=== PATIENT | female | born 1950 | race Caucasian/White ===

== ENCOUNTER 2021-02-25 18:17 | Inpatient (IN) ==
[2021-02-25] MEDS ORDERED: Naloxone 0.4 MG/ML INJ IVP PRN (19:55)
[2021-02-25] MEDS ORDERED: Dextrose Gel 15 GM/37.5 ML TUBE PO PRN ×2 (19:59)
[2021-02-25] MEDS ORDERED: D5% in Water 1,000 ML IVC PRN (19:59)
[2021-02-25] MEDS ORDERED: *HR* Dextrose 50 % in Water (Syg) 50 ML SYRINGE IVP PRN (19:59)
[2021-02-25] MEDS: Insulin LISPRO 300 UNITS/3 ML VIAL SUBQ SCH ×2 (21:01→23:41)
[2021-02-25] MEDS ORDERED: Perflutren Lipid Microsphere 1.3 ML in 0.9 % Sodium Chloride 8.7 ML IVP PRN (22:49)
[2021-02-25 23:31] LABS: Adenovirus Not Detected (Not Detect); Bordetella Pertussis Not Detected (Not Detect); Chlamydophila pneumoniae Not Detected (Not Detect); Coronavirus 229E Not Detected (Not Detect); Coronavirus HKU1 Not Detected (Not Detect); Coronavirus NL63 Not Detected (Not Detect); Coronavirus OC43 Not Detected (Not Detect); Human Metapneumovirus Not Detected (Not Detect); Human Rhinovirus/Enterovirus Not Detected (Not Detect); Influenza A Subtype 2009 H1 Not Detected (Not Detect); Influenza B Not Detected (Not Detect); Mycoplasma pneumoniae Not Detected (Not Detect); Parainfluenza Virus 1 Not Detected (Not Detect); Parainfluenza Virus 2 Not Detected (Not Detect); Parainfluenza Virus 3 Not Detected (Not Detect); Parainfluenza Virus 4 Not Detected (Not Detect); Respiratory Syncytial Virus Not Detected (Not Detect); SARS-CoV-2 Not Detected (Not Detect)
[2021-02-26 00:43] LABS: Basophils # 0.1 K/mcL (0.0-0.2); Basophils % 0.6 %; Eosinophils # 0.2 K/mcL (0.0-0.6); Eosinophils % 1.3 %; Hematocrit 36.7 % (35.3-44.9); Hemoglobin 11.8 g/dL (11.5-15.4); Immature Granulocytes % 0.5 % (0-4); Lymphocytes # 4.1 K/mcL (0.6-4.6); Lymphocytes % 30.5 %; Mean Corpuscular HGB Conc 32.2 g/dL (31.6-35.5); Mean Corpuscular Hemoglobin 27.7 pg (28.0-33.3); Mean Corpuscular Volume 86.2 fL (83.0-100.0); Mean Platelet Volume 11.4 fL (9.4-12.4); Monocytes % 7.4 %; Neutrophils # 8.1 K/mcL (1.6-8.9); Platelet Count 236 K/mcL (140-400); Red Blood Count 4.26 M/mcL (3.82-4.97); Red Cell Distribution Width 13.8 % (11.5-14.5); Segmented Neutrophils % 59.7 %; White Blood Count 13.6 K/mcL (4.3-11.1)
[2021-02-26 01:00] LABS: Calcium 9.3 mg/dL (8.6-10.3); Magnesium 1.6 mg/dL (1.6-2.6); Phosphorous 3.8 mg/dL (2.7-4.5); Potassium 3.9 mEq/L (3.5-5.1)
[2021-02-26] MEDS: Insulin LISPRO 300 UNITS/3 ML VIAL SUBQ SCH ×8 (06:12→21:56)
[2021-02-26] MEDS: *HR* Heparin 5,000 UNIT/ML VIAL SQ SCH ×3 (06:12→21:42)
[2021-02-26] MEDS: cefTRIAXone 1,000 MG in Water for inj. (sterile) 10 ML IVP SCH (08:50)
[2021-02-26] MEDS: lisinopriL 20 MG TABLET PO SCH (15:00)
[2021-02-26] MEDS ORDERED: 0.9 % Sodium Chloride 1,000 ML ONE (17:33)
[2021-02-26] MEDS ORDERED: *HR* FentaNYL (PF) 100 MCG/2 ML VIAL ONE (17:33)
[2021-02-26] MEDS ORDERED: ISOVUE-370 200 ML INFUS..BTL ONE (17:33)
[2021-02-26] MEDS ORDERED: Nitroglycerin 1,000 MCG/5 ML VIAL IV ONE (17:33)
[2021-02-26] MEDS ORDERED: Heparin 1,000 UNITS/500 mL 500 ML ONE (17:33)
[2021-02-26] MEDS ORDERED: *HR* Heparin 10,000 UNIT/10 ML VIAL ONE (17:33)
[2021-02-26] MEDS ORDERED: *HR* Midazolam HCl 2 MG/2 ML VIAL ONE (17:33)
[2021-02-26] MEDS: Insulin DETEMIR 100 UNIT/ML X5UNITS SUBQ SCH (21:49)
[2021-02-27 04:43] LABS: Basophils # 0.1 K/mcL (0.0-0.2); Basophils % 0.6 %; Eosinophils # 0.2 K/mcL (0.0-0.6); Eosinophils % 2.3 %; Hematocrit 33.1 % (35.3-44.9); Hemoglobin 10.6 g/dL (11.5-15.4); Immature Granulocytes % 0.3 % (0-4); Lymphocytes # 2.8 K/mcL (0.6-4.6); Mean Corpuscular Hemoglobin 27.5 pg (28.0-33.3); Mean Platelet Volume 11.3 fL (9.4-12.4); Monocytes # 0.8 K/mcL (0.0-1.3); Monocytes % 7.7 %; Neutrophils # 5.9 K/mcL (1.6-8.9); Platelet Count 185 K/mcL (140-400); Red Blood Count 3.85 M/mcL (3.82-4.97); Segmented Neutrophils % 60.1 %; White Blood Count 9.7 K/mcL (4.3-11.1)
[2021-02-27] MEDS: Insulin LISPRO 300 UNITS/3 ML VIAL SUBQ SCH ×6 (04:49→21:08)
[2021-02-27 04:59] LABS: Calcium 8.9 mg/dL (8.6-10.3); Potassium 4.1 mEq/L (3.5-5.1)
[2021-02-27] MEDS: *HR* Heparin 5,000 UNIT/ML VIAL SQ SCH ×3 (05:02→21:09)
[2021-02-27] MEDS: lisinopriL 20 MG TABLET PO SCH (08:07)
[2021-02-27] MEDS: Aspirin 81 MG TAB.CHEW PO SCH (08:07)
[2021-02-27] MEDS: cefTRIAXone 1,000 MG in Water for inj. (sterile) 10 ML IVP SCH (08:09)
[2021-02-27] MEDS ORDERED: *HR* Atropine Sulfate 1 MG/10 ML SYRINGE IVP PRN (11:45)
[2021-02-27] MEDS: *HR* Atropine Sulfate 1 MG/10 ML SYRINGE IVP PRN ×2 (11:59→18:48)
[2021-02-27 14:41] LABS: Thyroid Stimulating Hormone 3.324 mcIU/mL (0.340-5.600)
[2021-02-27 14:42] LABS: Triiodothyronine (T3) Free 2.75 pg/mL (2.50-3.90)
[2021-02-27] MEDS: Insulin DETEMIR 100 UNIT/ML X5UNITS SUBQ SCH (21:09)
[2021-02-28 01:35] LABS: Basophils # 0.1 K/mcL (0.0-0.2); Basophils % 0.5 %; Eosinophils # 0.3 K/mcL (0.0-0.6); Eosinophils % 2.7 %; Hematocrit 34.3 % (35.3-44.9); Hemoglobin 10.9 g/dL (11.5-15.4); Immature Granulocytes % 0.4 % (0-4); Lymphocytes # 3.3 K/mcL (0.6-4.6); Lymphocytes % 32.6 %; Mean Corpuscular HGB Conc 31.8 g/dL (31.6-35.5); Mean Corpuscular Hemoglobin 27.1 pg (28.0-33.3); Mean Corpuscular Volume 85.3 fL (83.0-100.0); Mean Platelet Volume 11.4 fL (9.4-12.4); Monocytes # 0.8 K/mcL (0.0-1.3); Monocytes % 7.9 %; Neutrophils # 5.7 K/mcL (1.6-8.9); Platelet Count 195 K/mcL (140-400); Red Blood Count 4.02 M/mcL (3.82-4.97); Red Cell Distribution Width 13.8 % (11.5-14.5); Segmented Neutrophils % 55.9 %; White Blood Count 10.3 K/mcL (4.3-11.1)
[2021-02-28] MEDS: *HR* Heparin 5,000 UNIT/ML VIAL SQ SCH ×3 (05:54→20:38)
[2021-02-28] MEDS: cefTRIAXone 1,000 MG in Water for inj. (sterile) 10 ML IVP SCH (07:35)
[2021-02-28] MEDS: Insulin LISPRO 300 UNITS/3 ML VIAL SUBQ SCH ×4 (07:36→20:37)
[2021-02-28] MEDS: Aspirin 81 MG TAB.CHEW PO SCH (07:36)
[2021-02-28] MEDS: lisinopriL 20 MG TABLET PO SCH (07:36)
[2021-02-28] MEDS: *HR* Atropine Sulfate 1 MG/10 ML SYRINGE IVP PRN (09:48)
[2021-02-28] MEDS: Insulin DETEMIR 100 UNIT/ML X5UNITS SUBQ SCH (20:37)
[2021-03-01] MEDS: *HR* Heparin 5,000 UNIT/ML VIAL SQ SCH ×3 (04:17→20:18)
[2021-03-01 06:35] LABS: Basophils # 0.1 K/mcL (0.0-0.2); Basophils % 0.5 %; Eosinophils # 0.2 K/mcL (0.0-0.6); Eosinophils % 2.2 %; Hemoglobin 10.6 g/dL (11.5-15.4); Immature Granulocytes % 0.3 % (0-4); Mean Corpuscular HGB Conc 32.1 g/dL (31.6-35.5); Mean Corpuscular Hemoglobin 27.8 pg (28.0-33.3); Mean Corpuscular Volume 86.6 fL (83.0-100.0); Mean Platelet Volume 11.6 fL (9.4-12.4); Monocytes # 0.9 K/mcL (0.0-1.3); Monocytes % 8.3 %; Neutrophils # 6.4 K/mcL (1.6-8.9); Platelet Count 192 K/mcL (140-400); Red Blood Count 3.81 M/mcL (3.82-4.97); Red Cell Distribution Width 13.9 % (11.5-14.5); Segmented Neutrophils % 60.7 %; White Blood Count 10.5 K/mcL (4.3-11.1)
[2021-03-01 06:43] LABS: INR 1.1; Prothrombin Time 12.6 Seconds (9.4-12.1)
[2021-03-01 06:46] LABS: Activated Partial Thrombo Time 32.5 Seconds (26.0-36.0)
[2021-03-01 06:52] LABS: Calcium 9.1 mg/dL (8.6-10.3); Potassium 4.2 mEq/L (3.5-5.1)
[2021-03-01] MEDS: Aspirin 81 MG TAB.CHEW PO SCH (07:31)
[2021-03-01] MEDS: lisinopriL 20 MG TABLET PO SCH (07:31)
[2021-03-01] MEDS: Insulin LISPRO 300 UNITS/3 ML VIAL SUBQ SCH ×4 (07:31→20:21)
[2021-03-01] MEDS: *HR* Atropine Sulfate 1 MG/10 ML SYRINGE IVP PRN ×2 (07:37→15:29)
[2021-03-01] MEDS: Insulin DETEMIR 100 UNIT/ML X5UNITS SUBQ SCH (20:19)
[2021-03-02] MEDS: *HR* Heparin 5,000 UNIT/ML VIAL SQ SCH ×3 (05:29→21:16)
[2021-03-02] MEDS: Insulin LISPRO 300 UNITS/3 ML VIAL SUBQ SCH ×4 (06:59→21:15)
[2021-03-02] MEDS: lisinopriL 20 MG TABLET PO SCH (07:18)
[2021-03-02] MEDS: Aspirin 81 MG TAB.CHEW PO SCH (07:18)
[2021-03-02 10:23] LABS: Basophils # 0.1 K/mcL (0.0-0.2); Basophils % 0.6 %; Eosinophils # 0.2 K/mcL (0.0-0.6); Eosinophils % 2.5 %; Hematocrit 34.7 % (35.3-44.9); Immature Granulocytes % 0.4 % (0-4); Lymphocytes # 2.6 K/mcL (0.6-4.6); Lymphocytes % 26.5 %; Mean Corpuscular HGB Conc 31.7 g/dL (31.6-35.5); Mean Corpuscular Hemoglobin 27.9 pg (28.0-33.3); Mean Corpuscular Volume 88.1 fL (83.0-100.0); Mean Platelet Volume 12.5 fL (9.4-12.4); Monocytes # 0.8 K/mcL (0.0-1.3); Monocytes % 8.5 %; Platelet Count 178 K/mcL (140-400); Red Blood Count 3.94 M/mcL (3.82-4.97); Red Cell Distribution Width 13.9 % (11.5-14.5); Segmented Neutrophils % 61.5 %; White Blood Count 9.7 K/mcL (4.3-11.1)
[2021-03-02 11:42] LABS: Calcium 9.1 mg/dL (8.6-10.3); Potassium 4.8 mEq/L (3.5-5.1)
[2021-03-02] MEDS ORDERED: *HR* FentaNYL (PF) 100 MCG/2 ML VIAL ONE (12:26)
[2021-03-02] MEDS ORDERED: 0.9 % Sodium Chloride 1,000 ML ONE (12:27)
[2021-03-02] MEDS ORDERED: *HR* Midazolam HCl 2 MG/2 ML VIAL ONE (12:27)
[2021-03-02] MEDS ORDERED: 0.9 % Sodium Chloride 500 ML ONE (12:27)
[2021-03-02] MEDS ORDERED: *HR* OxyCODONE Immed Rel 5 MG TABLET PO PRN (13:37)
[2021-03-02] MEDS ORDERED: Acetaminophen 325 MG TABLET PO PRN (13:37)
[2021-03-02] MEDS: CeFAZolin 2 GM/120 ML BAG IVPB SCH (16:28)
[2021-03-02] MEDS: Insulin DETEMIR 100 UNIT/ML X5UNITS SUBQ SCH (21:15)
[2021-03-03] MEDS: CeFAZolin 2 GM/120 ML BAG IVPB SCH (00:09)
[2021-03-03 01:18] LABS: Hematocrit 32.3 % (35.3-44.9); Hemoglobin 10.2 g/dL (11.5-15.4); Mean Corpuscular HGB Conc 31.6 g/dL (31.6-35.5); Mean Corpuscular Hemoglobin 27.1 pg (28.0-33.3); Mean Corpuscular Volume 85.9 fL (83.0-100.0); Mean Platelet Volume 11.5 fL (9.4-12.4); Platelet Count 187 K/mcL (140-400); Red Blood Count 3.76 M/mcL (3.82-4.97); Red Cell Distribution Width 14.1 % (11.5-14.5); White Blood Count 10.9 K/mcL (4.3-11.1)
[2021-03-03 01:36] LABS: BUN/Creatinine Ratio 22 (6-26); Blood Urea Nitrogen 22 mg/dL (8-23); Calcium 8.6 mg/dL (8.6-10.3); Carbon Dioxide 26 mEq/L (23-29); Chloride 106 mEq/L (98-107); Glucose 179 mg/dL (70-105); Osmolality,Calculated 294 (280-300); Potassium 4.1 mEq/L (3.5-5.1); Sodium 138 mEq/L (136-145); eGFR For African Americans > 60 (> 60); eGFR For Non-African Americans 55 (> 60)
[2021-03-03] MEDS: *HR* Heparin 5,000 UNIT/ML VIAL SQ SCH ×2 (06:23→12:58)
[2021-03-03] MEDS: lisinopriL 20 MG TABLET PO SCH (08:14)
[2021-03-03] MEDS: Aspirin 81 MG TAB.CHEW PO SCH (08:14)
[2021-03-03] MEDS: Insulin LISPRO 300 UNITS/3 ML VIAL SUBQ SCH ×2 (08:16→11:37)
[2021-03-03 10:49] VITALS: BP 154/57; TEMP 99.1; O2SAT 93
[2021-03-03 11:43] VITALS: PULSE 71
[2021-03-03] MEDS ORDERED: FLU Vac QV 21-22 (6Month+)/PF 0.5 ML SYRINGE IM ONE (14:20)
== END 2021-03-03 15:03 | disposition home or self-care (01) | DRG 243 ==
LOC: 3BNU → SUATTDRO 19:21 → 2NNU 02-27 14:47
PROVIDERS: ADMIT Pharmacist; ATTEND Internal Medicine